=== PATIENT | female | born 1935 | race Caucasian/White ===

== ENCOUNTER 2018-01-20 21:00 | Emergency (ER) | payer MEDICARE, OTHER ==
[2018-01-20 21:14] VITALS: BP 157/64
[2018-01-20] MEDS ORDERED: Lidocaine/EPINEPHrine/Tetracaine Soln 1 ML TOP ONE (21:21)
--- NOTE | 2018-01-20 21:50 | EDM.PDOC ---
ED HPI GENERAL MEDICAL PROBLEM - General Chief Complaint: Head Injury Stated Complaint: FELL HIT HEAD AND IS BLEEDING Time Seen by Provider: 01/20/18 21:08 Source of Information: Reports: Patient, Family History Limitations: Reports: Intoxication - History of Present Illness INITIAL COMMENTS - FREE TEXT/NARRATIVE: The patient presents because she fell and hit her head. She went to the bathroom and tripped and hit her head. She has a 4.2cm laceration to the back of her head. She has no headache, neck pain, chest pain, shortness of breath, abdominal pain, nausea or vomiting. She denies arm or leg pain. She does admit to drinking today. Onset: Sudden Duration: Minutes: Location: Reports: Head Quality: Reports: Sharp Severity: Moderate Improves with: Reports: None Worsens with: Reports: None Associated Symptoms: Reports: No Other Symptoms posterior head Pain Score (Numeric/FACES): 3 - Related Data Allergies Allergy/AdvReac Type Severity Reaction Status Date / Time Penicillins Allergy Hives Verified 01/20/18 21:13 Home Meds: Home Meds Aspirin [Ecotrin] 81 mg PO DAILY 02/21/15 [History] Lisinopril 10 mg PO DAILY 02/21/15 [History] Sertraline [Zoloft] 100 mg PO DAILY 02/21/15 [History] Vit A/Vit C/Vit E/Zinc/Copper [Preservision Areds Softgel] 7,160 unit PO BID [History] Past Medical History HEENT History: Reports: Hard of Hearing Cardiovascular History: Reports: Hypertension Psychiatric History: Reports: Depression - Past Surgical History Other GI Surgeries/Procedures: ulcer surgery Social & Family History - Family History Family Medical History: Noncontributory - Tobacco Use Smoking Status *Q: Never Smoker - Caffeine Use Caffeine Use: Reports: Coffee - Recreational Drug Use Recreational Drug Use: No ED ROS GENERAL - Review of Systems Review Of Systems: See Below Constitutional: Reports: No Symptoms HEENT: Reports: Other (4.2cm laceration to the right occipital region) Respiratory: Reports: No Symptoms Cardiovascular: Reports: No Symptoms Endocrine: Reports: No Symptoms GI/Abdominal: Reports: No Symptoms : Reports: No Symptoms Musculoskeletal: Reports: No Symptoms ED EXAM, HEAD INJURY - Physical Exam Exam: See Below Exam Limited By: No Limitations General Appearance: Alert, No Apparent Distress Head: Other (4.2cm laceration to the right occipital region) Ears: Normal External Exam Nose: Normal Inspection Neck: Non-Tender, Normal Alignment, Normal Inspection Respiratory: No Respiratory Distress, Lungs Clear, Normal Breath Sounds Cardiovascular: Regular Rate, Rhythm, No Edema, No Murmur GI/Abdominal Exam: Soft, Non-Tender, No Organomegaly, No Mass Back Exam: Normal Inspection Extremities: Normal Inspection Neurologic: No Motor/Sensory Deficits, Alert, Oriented x 3 ED LACERATION/WOUND & SUZIE PROC - Laceration/Wound Repair Head Lac/wound length in cm: 4.2 Appearance: Subcutaneous, Linear Anesthetic Type: Topical (LET) Skin Prep: Saline Exploration/Debridement/Repair: Wound Explored, In a Bloodless Field, Explored to Base Closed with: Asim # of Sutures: 6 Tetanus Status Addressed: Yes Complications: No Course - Vital Signs Last Recorded V/S: Last Vital Signs Temp 97.8 F 01/20/18 21:04 Pulse 69 01/20/18 21:04 Resp 18 01/20/18 21:04 BP 157/64 H 01/20/18 21:04 Pulse Ox 97 01/20/18 21:04 - Orders/Labs/Meds Orders: Active Orders 24 hr Category Date Time Status Cardiac Monitoring [RC] . DIRECTED Care 01/20/18 21:21 Active Head wo Cont [CT] Stat Exams 01/20/18 21:21 Taken Labs: Laboratory Tests 01/20/18 01/20/18 Range/Units 21:40 21:40 WBC 5.79 (3.98-10.04) K/mm3 RBC 3.46 L (3.98-5.22) M/mm3 Hgb 11.9 (11.2-15.7) gm/L Hct 35.3 (34.1-44.9) % MCV 102.0 H (79.4-94.8) fl MCH 34.4 H (25.6-32.2) pg MCHC 33.7 (32.2-35.5) g/dl RDW Std Deviation 41.7 (36.4-46.3) fL Plt Count 225 (182-369) K/mm3 MPV 9.8 (9.4-12.3) fl Neut % (Auto) 50.0 (34.0-71.1) % Lymph % (Auto) 31.4 (19.3-51.7) % [place] % (Auto) 14.0 H (4.7-12.5) % Eos % (Auto) 3.3 (0.7-5.8) Baso % (Auto) 1.0 (0.1-1.2) % Neut # (Auto) 2.89 (1.56-6.13) K/mm3 Lymph # (Auto) 1.82 (1.18-3.74) K/mm3 [place] # (Auto) 0.81 H (0.24-0.36) K/mm3 Eos # (Auto) 0.19 (0.04-0.36) K/mm3 Baso # (Auto) 0.06 (0.01-0.08) K/mm3 Sodium 137 (136-145) mEq/L Potassium 3.6 (3.5-5.1) mEq/L Chloride 101 (98-107) mEq/L Carbon Dioxide 24 (21-32) mEq/L Anion Gap 15.6 H (5-15) BUN 11 (7-18) mg/dL Creatinine 0.8 (0.55-1.02) mg/dL Est Cr Clr Drug Dosing 41.62 mL/min Estimated GFR (MDRD) > 60 (>60) mL/min BUN/Creatinine Ratio 13.8 L (14-18) Glucose 106 (83-115) mg/dL Calcium 8.5 (8.5-10.1) mg/dL Total Bilirubin 0.3 (0.2-1.0) mg/dL AST 20 (15-37) U/L ALT 21 (14-59) U/L Alkaline Phosphatase 95 (46-116) U/L Total Protein 6.9 (6.4-8.2) g/dl Albumin 3.5 (3.4-5.0) g/dl Globulin 3.4 gm/dL Albumin/Globulin Ratio 1.0 (1-2) Ethyl Alcohol 0.21 (0.00) gm% Meds: Medications Discontinued Medications Generic Name Dose Route Start Last Admin Trade Name Freq PRN Reason Stop Dose Admin Lidocaine/Tetracaine 2 ml 01/20/18 21:21 01/20/18 21:28 Let Soln TOP 01/20/18 21:22 2 ml ONETIME ONE Administration - Re-Assessments/Exams Free Text/Narrative Re-Assessment/Exam: 01/20/18 21:[address] of her head without contrast. I will get labs and I had my nurse put some LET on the wound. 01/20/18 22:[address] of her head shows no acute findings. Her CBC and CMP look good. Her blood alcohol was elevated at 0.21. Departure - Departure Time of Disposition: 22:15 Disposition: Home, Self-Care 01 Condition: Good Clinical Impression: Fall Qualifiers: Encounter type: initial encounter Qualified Code(s): W19.XXXA - Unspecified fall, initial encounter Laceration of scalp Qualifiers: Encounter type: initial encounter Qualified Code(s): S01.01XA - Laceration without foreign body of scalp, initial encounter - Discharge Information Referrals: Ann Ahumada NP [Primary Care Provider] - 1 Week Forms: ED Department Discharge Additional Instructions: Clean the wound with warm soapy water and apply antibiotic ointment after. Have the asim removed in 1 week. Go home and get some rest. Please return if you are worse. - My Orders Last 24 Hours: My Active Orders 01/20/18 21:21 Cardiac Monitoring [RC] . DIRECTED Head wo Cont [CT] Stat - Assessment/Plan Last 24 Hours: My Active Orders 01/20/18 21:21 Cardiac Monitoring [RC] . DIRECTED Head wo Cont [CT] Stat
--- NOTE | 2018-01-21 09:18 | CT ---
Head CT Technique: Multiple axial sections through the brain were obtained. Intravenous contrast was not utilized. Comparison: No prior intracranial imaging. Findings: Ventricles along with basal cisterns and sulci over the convexities are mildly prominent. Minimal diminished density is noted within the periventricular and subcortical white matter compatible with slight small vessel ischemic demyelination change. 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 No other abnormal parenchymal densities are seen. No evidence of intracranial hemorrhage. No midline shift or mass effect is seen. Atherosclerotic calcification is noted within the carotid siphon. Bone window settings were reviewed which show no acute calvarial abnormality. Visualized sinuses are clear. Impression: 1. Senescent change as described above. Nothing acute is seen. Diagnostic code #2 I agree with preliminary report from [facility], finalized at 01/20/18, 10:46 PM Central Time
== END 2018-01-20 22:25 | disposition home or self-care (01) ==
LOC: JD.ED 21:00
DX: S01.01XA Laceration without foreign body of scalp, initial encounter (principal); Z88.0 Allergy status to penicillin; Z79.82 Long term (current) use of aspirin; Z79.899 Other long term (current) drug therapy; I10 Essential (primary) hypertension; W01.10XA Fall on same level from slipping, tripping and stumbling with subsequent striking against unspecified object, initial encounter
CPT/HCPCS: 12002; 36415; 70450; 80053; 85025; 99284; A9270; G0480; 12013; 99282-25

== ENCOUNTER 2018-11-06 12:32 | Emergency (ER) | payer MEDICARE, OTHER ==
[2018-11-06 12:48] VITALS: BP 172/71
--- NOTE | 2018-11-06 12:51 | EDM.PDOC ---
ED HPI GENERAL MEDICAL PROBLEM - General Chief Complaint: Lower Extremity Injury/Pain Stated Complaint: RT HIP INJURY Time Seen by Provider: 11/06/18 12:42 Source of Information: Reports: Patient, RN Notes Reviewed History Limitations: Reports: No Limitations - History of Present Illness INITIAL COMMENTS - FREE TEXT/NARRATIVE: Patient is an 82-year-old female who presents to the ED today for evaluation of worsening right hip pain. She states that on Thursday of this last week she did have a fall in her kitchen at home. She noted that she was talking on the phone and she may have turned around a little quicker than she thought she did and she went down onto her right hip. She notes that she may have had 2-3 beers that day as well, she denies any dizziness lightheadedness before the incident and further denies any loss of consciousness or hitting her head after the incident. She states that the pain is mostly in her right hip and she can have some radiation down to her right leg with certain sitting positions. She would rate her pain at a 8 out of 10 today she has been taking some Tylenol and icing the hip for pain relief. She has been using a walker for ambulation, she states she can walk but it is quite painful to do so. She was seen by chiropractor this a.m. as she states her hip goes out frequently and the chiropractor stated she needed to come to the ER for further evaluation. She notes her primary care provider to be Ann Ahumada. There is diffuse bruising to the os to her portion of the right lower extremity. She denies being on any blood thinners at this time, however she does take an aspirin for heart health. - Related Data Allergies Allergy/AdvReac Type Severity Reaction Status Date / Time Penicillins Allergy Hives Verified 11/06/18 12:42 Home Meds: Home Meds Aspirin [Ecotrin] 81 mg PO DAILY 02/21/15 [History] Lisinopril 10 mg PO DAILY 02/21/15 [History] Vit A/Vit C/Vit E/Zinc/Copper [Preservision Areds Softgel] 7,160 unit PO BID [History] Hydrocodone/Acetaminophen [Hydrocodon-Acetaminophen 5-325] 1 tab PO Q6HR PRN # 28 tablet 11/06/18 [Rx] Past Medical History HEENT History: Reports: Hard of Hearing Cardiovascular History: Reports: Hypertension Psychiatric History: Reports: Depression - Past Surgical History Other GI Surgeries/Procedures: ulcer surgery Social & Family History - Family History Family Medical History: Noncontributory - Tobacco Use Smoking Status *Q: Never Smoker - Caffeine Use Caffeine Use: Reports: Coffee - Recreational Drug Use Recreational Drug Use: No Review of Systems - Review of Systems Review Of Systems: See Below Constitutional: Reports: No Symptoms Eyes: Reports: No Symptoms Ears: Denies: Dizziness Nose: Reports: No Symptoms Mouth/Throat: Reports: No Symptoms Respiratory: Reports: No Symptoms Cardiovascular: Reports: No Symptoms GI/Abdominal: Reports: No Symptoms Genitourinary: Reports: No Symptoms Musculoskeletal: Reports: Joint Pain (right lateral hip pain), Other (right leg swelling, with diffuse bruising to to posterior right leg.) Skin: Reports: Bruising Neurological: Reports: No Symptoms Psychiatric: Reports: No Symptoms ED EXAM, GENERAL - Physical Exam Exam: See Below Exam Limited By: No Limitations General Appearance: Alert, WD/WN, No Apparent Distress Eye Exam: Bilateral Eye: EOMI, Normal Inspection, PERRL Ears: Normal External Exam, Normal TMs Nose: Normal Inspection Throat/Mouth: Normal Inspection, Normal Oropharynx, No Airway Compromise Head: Atraumatic, Normocephalic Neck: Normal Inspection Respiratory/Chest: No Respiratory Distress, Lungs Clear, Normal Breath Sounds, No Accessory Muscle Use, Chest Non-Tender Cardiovascular: Normal Peripheral Pulses, Regular Rate, Rhythm, No Murmur GI/Abdominal: Normal Bowel Sounds, Soft, Non-Tender, No Distention Back Exam: Normal Inspection, Full Range of Motion Extremities: Normal Capillary Refill, Limited Range of Motion (of right lower leg due to pain) Neurological: Alert, Oriented, Normal Cognition, No Motor/Sensory Deficits Psychiatric: Normal Affect, Normal Mood Skin Exam: Warm, Dry, Intact, No Rash, Ecchymosis (diffuse to posterior right leg, mild swelling noted to right thigh, just superior to R knee joint.) Course - Vital Signs Last Recorded V/S: Last Vital Signs Temp 97.6 F 11/06/18 12:46 Pulse 90 11/06/18 12:46 Resp BP 172/71 H 11/06/18 12:46 Pulse Ox 99 11/06/18 12:46 - Orders/Labs/Meds Orders: Active Orders 24 hr Category Date Time Status Hip Min 2V or 3V w Pelvis Rt [CR] Stat Exams 11/06/18 12:48 Ordered HYDROmorphone [Dilaudid] Med 11/06/18 14:04 Once 0.5 mg IM ONETIME ONE - Re-Assessments/Exams Free Text/Narrative Re-Assessment/Exam: 11/06/18 14:03 Patient presents to the ED today for the evaluation of right hip pain. I did order right hip x-rays, and these were reviewed with Dr. Sotomayor and myself. It does appear that she has broken the greater trochanter off of her right proximal femur. Dr. Sotomayor states that the is are not usually surgically fixed , recommends that she has decent pain control and follow-up with Dr. Styles this week. Departure - Departure Time of Disposition: 14:05 Disposition: Home, Self-Care 01 Condition: Fair Clinical Impression: Fracture of femur Qualifiers: Encounter type: initial encounter Femur location: greater trochanter Fracture type: closed Fracture alignment: displaced Laterality: right Qualified Code(s): S72.111A - Displaced fracture of greater trochanter of right femur, initial encounter for closed fracture - Discharge Information *PRESCRIPTION DRUG MONITORING PROGRAM REVIEWED*: No *COPY OF PRESCRIPTION DRUG MONITORING REPORT IN PATIENT WILVER: No Instructions: Pain Medicine Instructions, [id number] Referrals: Ann Ahumada NP [Primary Care Provider] - Forms: ED Department Discharge Additional Instructions: You have been evaluated in the ED for your right hip pain. Your x-ray demonstrated that you did fracture the greater trochanter off of the top of your femur. They usually do not surgically repaired these. You will need to use a walker for ambulation, and will be provided pain medications for further pain relief that is not relieved by Tylenol alone. This will be hydrocodone 5/325, please take one tablet every 6 hours as needed for pain not relieved by Tylenol alone. This medication has been electronically sent to the [facility] located in the [employer]. These pain medications can be somewhat constipating recommend that you take a stool softener like Dulcolax or MiraLAX and increase fluid intake while taking these medications. Please use ice as tolerated to the affected area. You may take Tylenol 500 mg or ibuprofen 600mg q6 hrs for pain relief. Please do so until you have a tolerable level of pain with activity. Do not exceed 4000mg tylenol, Do not exceed 3200mg ibuprofen in a 24 hour time period. Please call Ortho for follow-up and further evaluation this week Dr. Styles is our orthopedic surgeon, his office number is [phone]. Please call and set up an appointment as soon as possible for further management. Please return to ED if your symptoms should change or worsen. - My Orders Last 24 Hours: My Active Orders 11/06/18 12:48 Hip Min 2V or 3V w Pelvis Rt [CR] Stat 11/06/18 14:04 HYDROmorphone [Dilaudid] 0.5 mg IM ONETIME ONE - Assessment/Plan Last 24 Hours: My Active Orders 11/06/18 12:48 Hip Min 2V or 3V w Pelvis Rt [CR] Stat 11/06/18 14:04 HYDROmorphone [Dilaudid] 0.5 mg IM ONETIME ONE
[2018-11-06] MEDS ORDERED: HYDROmorphone 1 MG/ML Syringe IM ONE (14:04)
--- NOTE | 2018-11-07 12:12 | CR ---
Pelvis and right hip: AP view of the pelvis was obtained as well as AP and lateral views of the right hip. Comparison: No prior pelvis or hip exam. Mild scoliosis is noted within the spine. Degenerative change is noted within the spine. Mild joint space narrowing is seen within both hips. Sacroiliac joints are normal. Bony structures are osteopenic. Fracture with mild displacement is seen involving the greater trochanter. No additional fracture or other bony abnormality is seen. Impression: 1. Greater trochanteric fracture as noted above. 2. Other incidental findings. Diagnostic code #3
== END 2018-11-06 14:42 | disposition home or self-care (01) ==
LOC: JD.ED 12:32
DX: S72.111A Displaced fracture of greater trochanter of right femur, initial encounter for closed fracture (principal); I10 Essential (primary) hypertension; Z88.0 Allergy status to penicillin; Z79.899 Other long term (current) drug therapy; W19.XXXA Unspecified fall, initial encounter; Y92.000 Kitchen of unspecified non-institutional (private) residence as the place of occurrence of the external cause
CPT/HCPCS: 73502; 96372; 99283; J1170

== ENCOUNTER 2023-06-20 12:45 | Emergency (ER) | payer MEDICARE, OTHER ==
[2023-06-20] MEDS ORDERED: Ibuprofen 400 MG Tab PO ONE (13:48)
[2023-06-20] MEDS ORDERED: Acetaminophen 325 MG Tab PO ONE (13:48)
[2023-06-20 14:09] VITALS: BP 151/70; PULSE 65
== END 2023-06-20 14:05 | disposition home or self-care (01) ==
LOC: JD.ED 12:45
DX: S52.572A Other intraarticular fracture of lower end of left radius, initial encounter for closed fracture (principal); I10 Essential (primary) hypertension; Z88.0 Allergy status to penicillin; Z79.899 Other long term (current) drug therapy; W18.30XA Fall on same level, unspecified, initial encounter; Y92.099 Unspecified place in other non-institutional residence as the place of occurrence of the external cause
CPT/HCPCS: 73110; 99283; A9270; 99282

== ENCOUNTER 2024-05-18 11:57 | Emergency (ER) | payer MEDICARE, OTHER ==
[2024-05-18 12:51] LABS: BASOPHILS PERCENT AUTO 0.5 % (0.0-1.0); EOSINOPHILS ABSOLUTE AUTO 0.4 K/mm3 (0.0-0.4); EOSINOPHILS PERCENT AUTO 5.8 % (0.0-6.0); HEMATOCRIT 31.4 % (37.0-47.0); HEMOGLOBIN 10.3 gm/dl (12.0-16.0); IMMATURE GRAN ABSOLUTE AUTO 0.08 K/mm3 (0.00-0.05); LYMPHOCYTES PERCENT AUTO 13.1 % (24.0-44.0); MEAN CORPUSCULAR HEMOGLOBIN 32.7 pg (28.0-32.0); MEAN CORPUSCULAR HGB CONC 32.8 g/dl (32.0-36.0); MEAN CORPUSCULAR VOLUME 99.7 fl (83.0-99.0); MEAN PLATELET VOLUME 9.9 fl (9.4-12.3); MONOCYTES ABSOLUTE AUTO 0.7 K/mm3 (0.0-0.8); MONOCYTES PERCENT AUTO 9.6 % (0.0-8.0); NEUTROPHILS ABSOLUTE AUTO 5.3 K/mm3 (1.8-7.7); PLATELET COUNT,PLT 169 K/mm3 (150-400); RED BLOOD CELL COUNT 3.15 M/mm3 (4.10-5.30); WHITE BLOOD CELL COUNT,WBC 7.63 K/mm3 (3.9-11.3)
[2024-05-18 13:18] LABS: A/G RATIO 1.2 (1-2); ALBUMIN 3.7 g/dl (3.4-5.0); ANION GAP 12.6 (5-15); BILIRUBIN TOTAL 0.3 mg/dL (0.2-1.0); BUN/CREATININE RATIO 16.7 (14-18); CALCIUM 8.8 mg/dL (8.5-10.1); CREATININE 1.2 mg/dL (0.55-1.02); EST CRCL DRUG DOSING (CG) 24.92 mL/min; POTASSIUM,K 4.6 mEq/L (3.5-5.1); PROTEIN TOTAL,TP 6.8 g/dl (6.4-8.2)
[2024-05-18 14:02] VITALS: BP 145/65; PULSE 64
== END 2024-05-18 13:43 | disposition home or self-care (01) ==
LOC: JD.ED 11:57
DX: T17.908A Unspecified foreign body in respiratory tract, part unspecified causing other injury, initial encounter (principal); I10 Essential (primary) hypertension; Z79.82 Long term (current) use of aspirin; Z79.899 Other long term (current) drug therapy; Z88.0 Allergy status to penicillin
CPT/HCPCS: 36415; 71045; 71045-26; 80053; 85025; 99284